=== PATIENT | female | born 1995 | race Asian ===

== ENCOUNTER 2016-08-15 06:23 | Emergency (ER) | payer OTHER ==
[~2016-08-15] VITALS: Ht 159 cm; Wt 59.1 kg
[2016-08-15 06:24] VITALS: BP 133/100; PULSE 94; TEMP 97.6
[2016-08-15] MEDS ORDERED: AMOXICILLIN875 MG PO (07:33)
== END 2016-08-15 07:50 | disposition home or self-care (01) ==
LOC: COL.ER 06:23
DX: H66.91 Otitis media, unspecified, right ear (principal); H61.21 Impacted cerumen, right ear